=== PATIENT | male | born 2000 | race Caucasian/White ===

== ENCOUNTER 2025-06-25 00:48 | Emergency (ER) | payer SELFPAY ==
[2025-06-25] MEDS ORDERED: cefTRIAXone (ROCEPHIN) 2 GM VIAL ONE (01:17)
[2025-06-25] MEDS ORDERED: predniSONE 20 MG TAB ONE (01:17)
[2025-06-25] MEDS ORDERED: cefTRIAXone (ROCEPHIN) 1 GM VIAL ONE (01:18)
[2025-06-25] MEDS ORDERED: Naproxen 500 MG TAB ONE (01:25)
== END 2025-06-25 01:42 | disposition home or self-care (01) ==
LOC: NAV ERS 00:48
DX: J02.9 Acute pharyngitis, unspecified (principal); K02.9 Dental caries, unspecified; F17.210 Nicotine dependence, cigarettes, uncomplicated
CPT/HCPCS: 87081; 87430; 96372; 99283; J0696; J7512